=== PATIENT | female | born 1970 | race Caucasian/White ===

== ENCOUNTER 2020-05-02 12:32 | Day surgery (SDC) | payer OTHER ==
[2020-04-25 15:00] VITALS: BMI 23.3
[2020-05-02] MEDS ORDERED: MIDAZOLAM HCL 2 MG/2 ML SINGLE DOSE VIAL ONE (15:33)
[2020-05-02] MEDS ORDERED: PROPOFOL 20 ML ONE ×4 (15:33→16:32)
[2020-05-02] MEDS ORDERED: BUPIVACAINE HCL/PF 0.25% (2.5MG/ML) 10 ML VIAL ONE (15:42)
[2020-05-02] MEDS ORDERED: LIDOCAINE HCL 2% (20ML MULTI-DOSE VIAL) ONE ×2 (15:42→16:14)
[2020-05-02] MEDS ORDERED: ONDANSETRON 4 MG/2 ML VIAL ONE (17:18)
[2020-05-02] MEDS ORDERED: ONDANSETRON 4 MG/2 ML VIAL IVPUSH PRN (17:38)
[2020-05-02] MEDS ORDERED: PROMETHAZINE HCL 25 MG/1 ML VIAL IVPUSH PRN (17:38)
[2020-05-02] MEDS ORDERED: oxyCODONE HCL 5 MG TABLET PO PRN ×2 (17:38)
[2020-05-02 18:26] VITALS: TEMP 97.5
[2020-05-02 18:30] VITALS: BP 123/54; PULSE 61
--- NOTE | 2020-05-04 19:14 | OP ---
DATE OF OPERATION: 05/02/2020 PREOPERATIVE DIAGNOSIS: Right carpal tunnel syndrome. POSTOPERATIVE DIAGNOSIS: Right carpal tunnel syndrome. OPERATIVE PROCEDURE: Right endoscopic carpal tunnel release. SURGEON: Hugo Alonso MD. ANESTHESIA: General anesthesia. COMPLICATIONS: None. ESTIMATED BLOOD LOSS: Minimal. INDICATION FOR PROCEDURE: The patient is a 49-year-old female with the above findings, indicated for operative treatment. Risks, benefits, and alternatives were discussed with the patient at length. Proper informed consent was obtained. PROCEDURE: After proper identification of the patient and correct operative site, patient was brought to the operating room and placed supine on the operating table, all bony prominences well padded. Anesthesia was provided by the anesthesiologist and adequate for procedure. Right upper extremity was prepped and draped in the usual sterile fashion. Well-padded tourniquet was placed with a sterile prep. Esmarch bandage to exsanguinate the right upper extremity. Tourniquet inflated to 250 mmHg. Transverse incision made in the proximal wrist crease. Incision was taken sharply through the skin with blunt and sharp dissection through subcutaneous tissues. The antebrachial fascia was divided, and the carpal canal was entered. Elevator was used to free any soft tissue off the undersurface of the transverse carpal ligament. The Hamate finder dilators were used to prepare the canal. The Microaire endoscopic carpal tunnel release system inserted to the distal edge of the transverse carpal ligament. At all times throughout the procedure, excellent visualization was achieved, and at no time was any soft tissue allowed to interpose between the blade and undersurface of the transverse carpal ligament. The blade was then deployed, and the transcarpal ligament divided along with the distal 4 cm of the antebrachial fascia under direct mini-open approach using loupe magnification. This provided complete release of the median nerve of the wrist. Wound was repaired with a 4-0 Monocryl suture. Steri-Strips and sterile dressings were placed. The patient was reversed from anesthesia and brought to the recovery room in stable condition. She tolerated the procedure well. HUGO ALONSO M.D. [id number]
== END 2020-05-02 18:05 | disposition home or self-care (01) ==
LOC: FASU 12:32
PROVIDERS: ATTEND Orthopaedic Surgery Hand Surgery
PROC: 01N54ZZ Release Median Nerve, Percutaneous Endoscopic Approach (ICD-10-PCS; principal; 2020-05-02 16:37)
DX: G56.01 Carpal tunnel syndrome, right upper limb (principal)
CPT/HCPCS: 84703; 94760